=== PATIENT | female | born 1945 | race Caucasian/White ===

== ENCOUNTER 2016-08-28 07:19 | Emergency (ER) | payer MEDICARE ==
[2016-08-28] MEDS ORDERED: Albuterol/Ipratropium NEB.SOL* Albuterol 2.5 MG/Ipratropium 0.5 MG 3 ML INH ONE ×2 (07:49→09:13)
[2016-08-28] MEDS ORDERED: methylPREDNISolone 125 MG* 2 ML VIAL IV ONE (07:49)
[2016-08-28] MEDS ORDERED: NS 0.9% 1000 ML* 1,000 ML IV ONE (07:50)
--- NOTE | 2016-08-28 09:16 | RAD ---
INDICATION: Short of breath. Cough. COMPARISON: January 29, 2016 TECHNIQUE: AP seated and lateral dual-energy views were obtained. FINDINGS: Bones/Soft Tissues: There are no acute bony findings. Cardiomediastinal: The cardiomediastinal silhouette is normal. Lungs: There is hyperinflation with chronic interstitial changes. There is increased airspace disease in the lingular segment which is linear and most consistent with scarring or atelectasis. There is a small left basilar infiltrate which is new. Para Pleura: New, small, left-sided effusion. Other: None IMPRESSION: PROGRESSIVE LINGULAR AND LEFT LOWER LOBE ATELECTASIS/INFILTRATE WITH SMALL LEFT-SIDED EFFUSION. SUGGEST FOLLOW-UP.
[2016-08-28] MEDS ORDERED: Levofloxacin TAB* 250 MG PO ONE (09:45)
[2016-08-28] MEDS ORDERED: Levofloxacin TAB* 500 MG PO ONE (09:46)
[2016-08-28 10:17] VITALS: BP 154/72
--- NOTE | 2016-08-28 13:31 | UC ---
Epi Encarnacion Alfonso, scribed for Juliocesar Kirk MD on 08/28/16 at 0722 . Shortness of Breath HPI - HPI Summary HPI Summary: This patient is a 71 year old female presenting accompanied by family member to [facility] c/o SOB since yesterday. She reports sharp left lung pain at rest. She rates the pain 9/10 in severity. Sx aggravated by nothing and alleviated by ibuprofen and nebulizer treatment (last night). She reports fever, insomnia, non -productive cough, and wheezing. She denies chills, pedal edema, and CP. Pt uses nasal cannula. Pt is a former smoker. Denies PMHx of COPD and CAD. PMHx of COPD. Declining transfer to [facility]. - History of Current Complaint Stated Complaint: SOB Hx Obtained From: Patient, Family/Exercise Rider - family member Onset/Duration: Sudden Onset, Lasting Days - Yesterday, Still Present Timing: Constant Current Severity: Severe Dyspnea At: Rest Alleviating Factors: Bronchodilators, OTC Meds Associated Signs & Symptoms: Positive: Cough (Nonproductive), Wheezing, Fever, Other - Positive insomnia; negative chills, pedal edema, and CP. 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; cervical conization 1975; - Family History Known Family History: Positive: Respiratory Disease - Social History Alcohol Use: Rare Substance Use Type: None Smoking Status (MU): Former Smoker Type: Cigarettes Have You Smoked in the Last Year: No - Immunization History Most Recent Influenza Vaccination: this season Most Recent Tetanus Shot: 5 years Most Recent Pneumonia Vaccination: 5 years Review of Systems Constitutional: Fever, Other - Negative chills Respiratory: Shortness Of Breath, Cough - non-productive, Other - Positive wheezing and left candice pain Cardiovascular: Other - Negative CP Motor: Other - Negative pedal edema Neurological: Other - Positive insomnia, All Other Systems Reviewed And Are Negative: Yes Physical Exam Triage Information Reviewed: Yes Appearance: Other: Vital Signs: Initial Vital Signs Temp 98.2 F 08/28/16 07:23 Pulse 128 08/28/16 07:23 Resp 24 08/28/16 07:23 BP 142/90 08/28/16 07:23 Pulse Ox 94 08/28/16 07:23 Vital Signs Reviewed: Yes - Additional Comments The patient is well-nourished in moderate respiratory distress and in no acute pain. The skin is warm and dry and skin color reflects adequate perfusion. No cyanosis. HEENT: The head is normocephalic and atraumatic. The pupils are equal and reactive. The conjunctivae are clear and without drainage. Nares are patent and without drainage. Mouth reveals mildly dry mucous membranes and the throat is without erythema and exudate. The external ears are intact. The ear canals are patent and without drainage. The tympanic membranes are intact. Neck is supple with full range of motion and non-tender. There are no carotid bruits. There is neck vein distension. Respiratory: Chest is non-tender. Lungs are wheezing diffusely with rhonchi in left base. Breath sounds are slightly diminished. Intercostal retractions. Supraclavicular retractions Cardiovascular: Heart is regular rate and rhythm. There is no murmur or rub auscultated. There is no peripheral edema and pulses are symmetrical and equal. Abdomen: The abdomen is soft and non-tender. There are normal bowel sounds heard in all four quadrants and there is no organomegaly palpated. Musculoskeletal: There is no back pain noted. Extremities are non-tender with full range of motion. There is 3 second capillary refill. There is no peripheral edema or calf tenderness elicited. Diagnostics - Radiology CXR Radiology Interpretation Completed By: Radiologist - PROGRESSIVE LINGULAR AND LEFT LOWER LOBE ATELECTASIS/INFILTRATE WITH SMALL LEFT-SIDED EFFUSION. SUGGEST FOLLOW-UP. - EKG Cardiac Rate: Tachycardia - BPM 121 Cardiac Rhythm: Sinus: Normal Ectopy: None ST Segment: Normal Re-Evaluation - Re-Evaluation First Eval Re-Evaluation Time: 08:28 Comment: Pt reports sx improved. Still diminished breath sounds, and wheezing. Appears more awake. Second Eval Re-Evaluation Time: 09:50 Comment: Pt continues to refuse to be transfered to the ED AMA. Shortness of Breath Dx - Course Course Of Treatment: A 71-year-old F presents to [facility] with a CC of SOB since yesterday. She reports fever, insomnia, non-productive cough, and wheezing. She denies chills, pedal edema, and CP. A CXR reveals PROGRESSIVE LINGULAR AND LEFT LOWER LOBE ATELECTASIS/INFILTRATE WITH SMALL LEFT-SIDED EFFUSION. An EKG reveals tachycardia. Patient was adviced to accept transfer to [facility]. Pt refused AMA and went home. - Differential Dx/Diagnosis Differential Diagnosis/HQI/PQRI: COPD Exacerbation, Pneumonia Provider Diagnoses: pneumonia left lower lobe, copd, ama Discharge - Discharge Plan Condition: Stable Disposition: AGAINST MEDICAL ADVICE Prescriptions: Levofloxacin TAB* [Levaquin TAB*] 750 mg PO DAILY #7 tab predniSONE TAB* [Deltasone TAB*] 60 mg PO DAILY #15 tab Referrals: Dat Wells MD [Primary Care Provider] - [facility] [place] [facility] REFERRAL [Outside] Additional Instructions: Follow-up with Dr. Kirk tomorrow. Present to the emergency department is shortness of breath returns, SaO2 is below 90, fever, or related symptoms return. The documentation as recorded by the Epi engel Alfonso accurately reflects the service I personally performed and the decisions made by , Juliocesar Kirk MD.
== END 2016-08-28 10:35 | disposition left against medical advice (07) ==
LOC: UCEAST 07:19
DX: J18.9 Pneumonia, unspecified organism (principal); J44.9 Chronic obstructive pulmonary disease, unspecified; Z53.20 Procedure and treatment not carried out because of patient's decision for unspecified reasons
CPT/HCPCS: 71020; 93005; 96361; 96374; 99213; A9270-GY; G0463; J2930

== ENCOUNTER 2018-06-05 05:05 | Emergency (ER) | payer MEDICARE ==
[2018-06-05] MEDS ORDERED: Lidocaine 2% JELLY* 6 ML JELLY TOPICAL ONE ×2 (05:33→05:37)
[2018-06-05] MEDS ORDERED: Lidocaine 2% JELLY* 10 ML JELLY TOPICAL ONE (05:37)
[2018-06-05] MEDS ORDERED: oxyCODONE/Acetamin 5/325 MG* TAB PO ONE (05:42)
[2018-06-05] MEDS ORDERED: Cephalexin CAP* 500 MG PO ONE (05:50)
--- NOTE | 2018-06-05 05:55 | ED ---
Throat Pain/Nasal Congestion - HPI Summary HPI Summary: The patient is a 73 year old female who is presenting to the [facility] with a chief complaint of epistaxis. The patient is currently taking oxygen at home (2 to 3 L ) and she is actively bleeding from both nostrils. The patient denies taking any blood thinners. The onset of the epistaxis was 0200 today. She denies chest pain, MIRANDA, N/V/D, and lightheadedness. Pertinent PMHx includes COPD and DM. Patient's medication and allergies noted. The symptoms are aggravated by nothing. The symptoms are aggravated by nothing. The pain is rated to be 0/10 in severity. - History of Current Complaint Chief Complaint: EDEpistaxis Time Seen by Provider: 06/05/18 05:42 Hx Obtained From: Patient Onset/Duration: Sudden Onset - Allergies/Home Medications Allergies/Adverse Reactions: Allergies Allergy/AdvReac Type Severity Reaction Status Date / Time clarithromycin Allergy Unknown Nausea And Verified 06/05/18 14:49 Vomiting Penicillins Allergy Unknown Rash And Verified 06/05/18 14:49 Itching Home Medications: Home Medications Albuterol HFA INHALER* [Ventolin HFA Inhaler*] 1 - 2 puff INH Q6H PRN 06/05/18 [ History Confirmed 06/05/18] Atorvastatin* [Lipitor*] 10 mg PO BEDTIME 06/05/18 [History Confirmed 06/05/18] Cholecalciferol (Vitamin D3) [D 1000] 1,000 unit PO DAILY 06/05/18 [History Confirmed 06/05/18] Fluticasone/Vilanterol MDI(NF) [Breo Ellipta MDI 100/25(NF)] 1 inh PO DAILY [History Confirmed 06/05/18] Multivitamins/Minerals TAB* [Theragran/minerals TAB*] 1 tab PO DAILY 06/05/18 [ History Confirmed 06/05/18] Venlafaxine HCl 150 mg PO DAILY 06/05/18 [History Confirmed 06/05/18] PMH/Surg Hx/FS Hx/Imm Hx Endocrine/Hematology History: Denies: Hx Diabetes, Hx Systemic Lupus Erythematosus, Hx Thyroid Disease Cardiovascular History: Reports: Hx Angina, Hx Hypercholesterolemia Denies: Hx Congestive Heart Failure, Hx Coronary Artery Disease, Hx Hypertension, Hx Myocardial Infarction, Hx Valvular Heart Disease Respiratory History: Reports: Hx Chronic Obstructive Pulmonary Disease (COPD) - on OXYGEN, Other Respiratory Problems/Disorders - COPD Denies: Hx Asthma GI History: Denies: Hx Ulcer History: Denies: Hx Dialysis, Hx Renal Disease Musculoskeletal History: Reports: Hx Arthritis Denies: Hx Rheumatoid Arthritis Sensory History: Reports: Hx Contacts or Glasses Opthamlomology History: Reports: Hx Contacts or Glasses Psychiatric History: Reports: Hx Depression - Cancer History Cancer Type, Location and Year: 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 in situ Hx Chemotherapy: No Hx Radiation Therapy: No - Surgical History Surgery Procedure, Year, and Place: fibrous bands removed from RT ureter as a child; 6 weeks ago splenic aneurysm SX; cervical conization 1975; Infectious Disease History: No Infectious Disease History: Denies: Hx Hepatitis, Hx Human Immunodeficiency Virus (HIV), History Other Infectious Disease, Traveled Outside the [place] in Last 30 Days - Family History Known Family History: Positive: Respiratory Disease Negative: Diabetes - Social History Occupation: Retired Alcohol Use: Rare Substance Use Type: Reports: None Hx Tobacco Use: No Smoking Status (MU): Former Smoker Type: Cigarettes Have You Smoked in the Last Year: No Review of Systems Constitutional: Negative Eyes: Negative Positive: Epistaxis - Active Bleeding Negative: Chest Pain Respiratory: Negative Negative: Vomiting, Diarrhea, Nausea Genitourinary: Negative Musculoskeletal: Negative Skin: Negative Neurological: Other - Negative Lightheadedness Negative: Headache Psychological: Normal All Other Systems Reviewed And Are Negative: Yes Physical Exam - Summary Physical Exam Summary: VITAL SIGNS: Reviewed. GENERAL: Patient is a well-developed and nourished (FEMALE) who is lying comfortable in the stretcher. Patient is not in any acute respiratory distress. HEAD AND FACE: Active bleeding through both nostrils; EYES: PERRLA, EOMI x 2, No injected conjunctiva, no nystagmus. EARS: Hearing grossly intact. Ear canals and tympanic membranes are within normal limits. MOUTH: Oropharynx within normal limits. NECK: Trachea is midline, no adenopathy, no JVD, no carotid bruit, no c-spine tenderness, neck with full ROM. Mild blood in oral pharynx CHEST: Symmetric, no tenderness at palpation LUNGS: Decreased breath sounds bilaterally but lungs are clear CVS: Regular rate and rhythm, S1 and S2 present, no murmurs or gallops appreciated. ABDOMEN: Soft, non-tender. No signs of distention. No rebound no guarding, and no masses palpated. Bowel sounds are normal. EXTREMITIES: FROM in all major joints, no edema, no cyanosis or clubbing. NEURO: Alert and oriented x 3. No acute neurological deficits. Speech is normal and follows commands. SKIN: Dry and warm Triage Information Reviewed: Yes Vital Signs On Initial Exam: Initial Vitals Temp Pulse Resp BP Pulse Ox 96.4 F 106 30 179/97 95 06/05/18 05:13 06/05/18 05:13 06/05/18 05:13 06/05/18 05:13 06/05/18 05:13 Vital Signs Reviewed: Yes Procedures - Procedure Summary Procedure Summary: Epistaxis Active bleeding from both sides. 2 Rhino rockets inserted (one into each nostril) Lidocaine viscous 2% local anesthesia used 4.5 cm rhino rockets Good hemostasis Diagnostics - Vital Signs Vital Signs Temp Pulse Resp BP Pulse Ox 06/05/18 05:13 96.4 F 106 30 179/97 95 - Laboratory Lab Statement: Any lab studies that have been ordered have been reviewed, and results considered in the medical decision making process. EENT Course/Dx - Course Course Of Treatment: The patient is a 73 year old female who is presenting to the [facility] with a chief complaint of a epistaxis. Onset was at 0200 today and the patient is still currently actively bleeding. Two Rhino rockets were inserted as described in the procedure note. Pertinent medical hx includes COPD. Patient takes 2 to 3 L of O2 at home. She is currently feeling better. We recommendated that she follow up with an ENT specialist at [facility] (Dr. Howell ) on Thursday. She is agreeable to this plan. The patient will be discharged home with a dx of epistaxis. O2 stat 97% in [facility]. The patient tolerated the Rhino rockets well. The patient will be discharged home with a dx of Epistaxis. - Diagnoses Provider Diagnoses: Epistaxis Discharge - Sign-Out/Discharge Documenting (check all that apply): Patient Departure - Discharge Home Patient Received Moderate/Deep Sedation with Procedure: No - Discharge Plan Condition: Stable Disposition: HOME Prescriptions: Cephalexin CAP* [Keflex CAP*] 500 mg PO QID #30 cap oxyCODONE/Acetamin 5/325 MG* [Percocet 5/325 TAB*] 1 tab PO Q6H PRN #14 tab MDD 4 PRN Reason: Pain Patient Education Materials: Nosebleed (ED) Referrals: Dat Wells MD [Primary Care Provider] - Samy Howell MD [Medical Doctor] - Additional Instructions: RETURN TO THE EMERGENCY DEPARTMENT FOR CHANGING OR WORSENING SYMPTOMS. FOLLOW UP WITH YOUR PRIMARY CARE PROVIDER WITHIN TWO OR THREE DAYS Follow up with ENT on Thursday (Dr. Howell). - Billing Disposition and Condition Condition: STABLE Disposition: Home - Attestation Statements Document Initiated by Carolinaibmarika: Yes Documenting Scribe: Devaughn Sultana Provider For Whom Keyur is Documenting (Include Credential): Dr. Aide Hampton Scribe Attestation: Devaughn Encarnacion scribed for Dr. Aide Hampton on 06/06/18 at 2018. Scribe Documentation Reviewed: Yes Provider Attestation: The documentation as recorded by the Devaughn engel accurately reflects the service I personally performed and the decisions made by Dr. Js marte Status of Scribe Document: Viewed
[2018-06-05 07:20] VITALS: BP 128/74
== END 2018-06-05 07:20 | disposition home or self-care (01) ==
LOC: ED 05:05
DX: R04.0 Epistaxis (principal); E11.9 Type 2 diabetes mellitus without complications; E78.00 Pure hypercholesterolemia, unspecified; J44.9 Chronic obstructive pulmonary disease, unspecified; Z88.0 Allergy status to penicillin; M19.90 Unspecified osteoarthritis, unspecified site; F32.9 Major depressive disorder, single episode, unspecified; Z88.8 Allergy status to other drugs, medicaments and biological substances; Z79.51 Long term (current) use of inhaled steroids; Z99.81 Dependence on supplemental oxygen; Z85.41 Personal history of malignant neoplasm of cervix uteri; Z87.891 Personal history of nicotine dependence
CPT/HCPCS: 30901; 99283; A9270-GY

== ENCOUNTER 2018-06-05 14:27 | Emergency (ER) | payer MEDICARE ==
--- NOTE | 2018-06-05 14:36 | ED ---
Throat Pain/Nasal Congestion - HPI Summary HPI Summary: A 73 y/o F brought in by ambulance presents to the ED with epistaxis onset approx 1300. Pt is not actively bleeding at bedside. She was seen in [facility] on this date at 0545 for epistaxis and was seen by Dr Hampton, who placed a rhino rocket in each nare. This afternoon, while she was home, the rhino rocket in the R nare fell out. She is not experiencing blood drainage in her throat. Associated sx: MIRANDA. She has not picked up her prescriptions yet today. Pt wears home oxygen 15/09. She is not on blood thinners. - History of Current Complaint Hx Obtained From: Patient Onset/Duration: Sudden Onset, Lasting Hours, Still Present - Allergies/Home Medications Allergies/Adverse Reactions: Allergies Allergy/AdvReac Type Severity Reaction Status Date / Time clarithromycin Allergy Unknown Nausea And Verified 06/05/18 14:49 Vomiting Penicillins Allergy Unknown Rash And Verified 06/05/18 14:49 Itching PMH/Surg Hx/FS Hx/Imm Hx Previously Healthy: No Endocrine/Hematology History: Denies: Hx Diabetes, Hx Systemic Lupus Erythematosus, Hx Thyroid Disease Cardiovascular History: Reports: Hx Angina, Hx Hypercholesterolemia Denies: Hx Congestive Heart Failure, Hx Coronary Artery Disease, Hx Hypertension, Hx Myocardial Infarction, Hx Valvular Heart Disease Respiratory History: Reports: Hx Chronic Obstructive Pulmonary Disease (COPD) - on OXYGEN, Other Respiratory Problems/Disorders - COPD Denies: Hx Asthma GI History: Denies: Hx Ulcer History: Denies: Hx Dialysis, Hx Renal Disease Musculoskeletal History: Reports: Hx Arthritis Denies: Hx Rheumatoid Arthritis Sensory History: Reports: Hx Contacts or Glasses Opthamlomology History: Reports: Hx Contacts or Glasses Psychiatric History: Reports: Hx Depression - Cancer History Cancer Type, 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 Hx Chemotherapy: No Hx Radiation Therapy: No - Surgical History Surgery Procedure, Year, and Place: fibrous bands removed from RT ureter as a child; 6 weeks ago splenic aneurysm SX; cervical conization 1975; Infectious Disease History: Denies: Hx Hepatitis, Hx Human Immunodeficiency Virus (HIV), History Other Infectious Disease, Traveled Outside the [place] in Last 30 Days - Family History Known Family History: Positive: Respiratory Disease Negative: Diabetes - Social History Occupation: Retired Lives: Alone Alcohol Use: Rare Hx Substance Use: No Substance Use Type: Reports: None Hx Tobacco Use: Yes Smoking Status (MU): Former Smoker Type: Cigarettes Have You Smoked in the Last Year: No Review of Systems Positive: Epistaxis Positive: Headache All Other Systems Reviewed And Are Negative: Yes Physical Exam - Summary Physical Exam Summary: GENERAL: Patient is a well-developed and nourished FEMALE who is lying comfortable in the stretcher. Patient is not in any acute respiratory distress. HEAD AND FACE: Normocephalic EYES: PERRLA, EOMI x 2. EARS: Hearing grossly intact. NOSE: L nostril is packed with rhino rocket. R nostril is not actively bleeding. MOUTH: There is some post nasal bleeding and clot. NECK: Supple, trachea is midline, no adenopathy, no JVD, no carotid bruit. CHEST: Symmetric, no tenderness at palpation LUNGS: Clear to auscultation bilaterally. No wheezing or crackles. CVS: Regular rate and rhythm, S1 and S2 present, no murmurs or gallops appreciated. ABDOMEN: Soft, non-tender. Bowel sounds are normal. No abdominal abnormal pulsations. EXTREMITIES: Full ROM in all major joints, no edema, no cyanosis or clubbing. NEURO: Alert and oriented x 3. No acute neurological deficits. Speech is normal and follows commands. SKIN: Dry and warm Triage Information Reviewed: Yes Vital Signs Reviewed: Yes Re-Evaluation - Re-Evaluation 1 Re-Evaluation Time: 15:40 Change: Worse - mildly Comment: R nare is mildly oozing. Pt is requesting to re-pack nostril. 2 Re-Evaluation Time: 16:00 Change: Unchanged Comment: Placing rhino rocket. EENT Course/Dx - Course Course Of Treatment: Pt is a 73 y/o F who was seen previously on this date for epistaxis. Rhino rockets were placed in each nare at that time, The rhino rocket in the R nare fell out at approx 1300. Pt is not actively bleeding at bedside. Associated sx: MIRANDA. R nare packed with rhino rocket. Reviewed patient' s report from visit this AM, pt received Keflex and Percocet, will not prescribe new medications. I discussed results with patient and she reports feeling better. She is hemodynamically stable and safe for discharge. Strict return precautions given and she will otherwise follow up with her PCP. - Diagnoses Provider Diagnoses: Nosebleed Discharge - Sign-Out/Discharge Documenting (check all that apply): Patient Departure - DC Patient Received Moderate/Deep Sedation with Procedure: No - Discharge Plan Condition: Stable Disposition: HOME Patient Education Materials: Anayeli (ED) Referrals: Dat Wells MD [Primary Care Provider] - 2 Days () Additional Instructions: Pick-up your prescriptions at the pharmacy from your prior visit today. Follow up with your primary care physician in 1-3 days. RETURN TO THE EMERGENCY DEPARTMENT FOR CHANGING OR WORSENING SYMPTOMS. - Billing Disposition and Condition Condition: STABLE Disposition: Home - Attestation Statements Document Initiated by Keyur: Yes Documenting Scribe: Karine Vicente Provider For Whom Keyur is Documenting (Include Credential): Dr. Kallie Drapre MD Scribe Attestation: Karine Encarnacion scribed for Dr. Kallie Draper MD on 06/06/18 at 1447. Scribe Documentation Reviewed: Yes Provider Attestation: The documentation as recorded by the Karine engel accurately reflects the service I personally performed and the decisions made by me, Dr. Kallie Draper MD Status of Scribe Document: Viewed
[2018-06-05] MEDS ORDERED: oxyCODONE/Acetamin 5/325 MG* TAB PO ONE (14:48)
[2018-06-05] MEDS ORDERED: Cephalexin CAP* 500 MG PO ONE (16:11)
[2018-06-05 16:34] VITALS: BP 175/75
== END 2018-06-05 16:32 | disposition home or self-care (01) ==
LOC: ED 14:27
DX: R04.0 Epistaxis (principal); Z88.0 Allergy status to penicillin; Z88.3 Allergy status to other anti-infective agents; E78.00 Pure hypercholesterolemia, unspecified; J44.9 Chronic obstructive pulmonary disease, unspecified; Z99.81 Dependence on supplemental oxygen; M19.90 Unspecified osteoarthritis, unspecified site; Z85.41 Personal history of malignant neoplasm of cervix uteri; Z87.891 Personal history of nicotine dependence
CPT/HCPCS: 99283; A9270-GY

== ENCOUNTER 2018-06-09 21:28 | Inpatient (IN) | payer MEDICARE ==
--- OUTSIDE RECORDS SUMMARY | 2018-06-09 21:35 | XMS REPORT | Continuity of Care Document ---
:1945 External Reference #:[id number] Author Name Siddhartha Haynes M.D. Address [address] [place] [address] Care Team Providers Name Role Phone Siddhartha Haynes M.D. 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 [address] AntonioLIOR zavala [id number] Advance Directives Description No Information Available Problems Description No Information Family History Description No Information Available Social History Type Date Description Comments Sex Unknown Occupation Retired Tobacco Use Start: Unknown End: Unknown Former Cigarette Smoker Tobacco Use Start: Unknown Never Smoked Cigars Tobacco Use Start: Unknown Never Smoked A Pipe Smokeless Tobacco Never Used Smokeless Tobacco ETOH Use Currently rarely consumes alcohol Tobacco Use Start: Unknown End: Unknown Patient is a former smoker Smoking Status Reviewed: 06/07/18 Patient is a former smoker Allergies, Adverse Reactions, Alerts Active Allergies Reaction Severity Comments Date Penicillin 06/07/2018 Medications Active Medications SIG Qnty Indications Ordering Provider Date Cephalexin 1 cap 4 times Unknown 500mg Capsules daily Oxycodone-Acetaminophe prn-Take One Unknown n Tablet By Mouth 5-325mg Tablets Every 6 Hours as Needed For Pain Maximum Daily Dose 4 Breo Ellipta Inhale One puff Unknown By Mouth Every 100-25mcg/Inh Aerosol Day Venlafaxine HCL ER 1 tab Gonzalez Connor 150mg M.D. Caps ER 24HR Atorvastatin Calcium Take One Tablet Unknown 10mg By Mouth In The Tablets Evening Vitamin D3 1 daily Unknown Centrum Silver 1 tab daily Unknown 50+Women 50+Women Tablets Ibandronate Sodium prn Gonzalez Wells 150mg M.D. Tablets Albuterol Sulfate HFA prn Unknown 108(90Base) mcg/Act Aerosol Immunizations Description No Information Available Vital Signs Date Vital Result Comment 06/07/2018 10:15am Weight 120.00 lb Weight 54.432 kg Height 65.5 inches 5'5.50" Height in cm's 166.4 cm BMI (Body Mass Index) 19.7 kg/m2 Results Description No Information Available Procedures Description No Information Available Encounters Type Date Location Provider Dx Diagnosis Office Visit 06/07/2018 [place] 02/23/07 Siddhartha Blanchard R04.0 Epistaxis 10:15a Shwetha Haynes. J34.89 Other specified disorders of nose and nasal sinuses Z99.81 Dependence on supplemental oxygen Plan of Treatment 06/07/2018 - Siddhartha Haynes M.D.R04.0 EpistaxisComments:the patient had bilateral packs placed in the ER this weekend. The right one had come out but the left balloon was in place. This was removed. I think cauterized along the floor of the left nostril where she was bleeding. She has a large anterior septal perforation. She did not know this was there.She denies any trauma or cocaine use. This probably formed from the O2NC that she uses. I have recommended saline gel 4 times a day. She uses the humidification with her O2. She could use the face mask for a while. I do not think she is a candidate for repair of the perforation.J34.89 Other specified disorders of nose and nasal [id number] Dependence on supplemental oxygen
[2018-06-09] MEDS ORDERED: methylPREDNISolone 125 MG* 2 ML VIAL IV ONE (21:58)
[2018-06-09] MEDS ORDERED: Albuterol/Ipratropium NEB.SOL* Albuterol 2.5 MG/Ipratropium 0.5 MG 3 ML INH ONE (21:58)
[2018-06-09] MEDS ORDERED: Magnesium Sulfate 2 GM IV* 2 GM/50 ML BAG IVPB ONE (21:59)
[2018-06-09] MEDS ORDERED: Saline NASAL SPRAY 0.65%* BTL BOTH NARES ONE (22:00)
[2018-06-09] MEDS ORDERED: NS 0.9% 1000 ML** 1,000 ML IV ONE (22:00)
--- NOTE | 2018-06-09 22:10 | ED ---
Throat Pain/Nasal Congestion - HPI Summary HPI Summary: The patient is a 73 year old female who is presenting to the [facility] with a chief complaint of SOB. She arrived to the [facility] via ambulance. The patient had her nasal balloons removed on Thursday (06/07/18) by an ENT and there is reports of nasal cauterization from Epistaxis that was prior to the current symptoms. She receives O2 at home (3 Lpm of O2). No reports of pain are noted. Patient also denies fevers, but states that she is feeling warm. She currently reports of skin diaphoresis. A nebulizer is at home, but the patient states that she does not use it. Pertinent PMHx includes DM. The symptoms are aggravated by nothing. The symptoms are alleviated by nothing. The pain is rated to be a 0/10 in severity. - History of Current Complaint Chief Complaint: EDShortnessOfBreath Time Seen by Provider: 06/09/18 21:43 Hx Obtained From: Patient Onset/Duration: Sudden Onset - Allergies/Home Medications Allergies/Adverse Reactions: Allergies Allergy/AdvReac Type Severity Reaction Status Date / Time clarithromycin Allergy Unknown Nausea And Verified 06/05/18 14:49 Vomiting Penicillins Allergy Unknown Rash And Verified 06/05/18 14:49 Itching PMH/Surg Hx/FS Hx/Imm Hx Endocrine/Hematology History: Denies: Hx Diabetes, Hx Systemic Lupus Erythematosus, Hx Thyroid Disease Cardiovascular History: Reports: Hx Angina, Hx Hypercholesterolemia Denies: Hx Congestive Heart Failure, Hx Coronary Artery Disease, Hx Hypertension, Hx Myocardial Infarction, Hx Valvular Heart Disease Respiratory History: Reports: Hx Chronic Obstructive Pulmonary Disease (COPD) - on OXYGEN, Other Respiratory Problems/Disorders - COPD Denies: Hx Asthma GI History: Denies: Hx Ulcer History: Denies: Hx Dialysis, Hx Renal Disease Musculoskeletal History: Reports: Hx Arthritis Denies: Hx Rheumatoid Arthritis Sensory History: Reports: Hx Contacts or Glasses Opthamlomology History: Reports: Hx Contacts or Glasses Psychiatric History: Reports: Hx Depression - Cancer History Cancer Type, 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 Hx Chemotherapy: No Hx Radiation Therapy: No - Surgical History Surgery Procedure, Year, and Place: fibrous bands removed from RT ureter as a child; 6 weeks ago splenic aneurysm SX; cervical conization 1975; Infectious Disease History: No Infectious Disease History: Denies: Hx Hepatitis, Hx Human Immunodeficiency Virus (HIV), History Other Infectious Disease, Traveled Outside the [place] in Last 30 Days - Family History Known Family History: Positive: Respiratory Disease Negative: Diabetes - Social History Occupation: Retired Alcohol Use: Rare Hx Substance Use: No Substance Use Type: Reports: None Hx Tobacco Use: Yes Smoking Status (MU): Former Smoker Type: Cigarettes Have You Smoked in the Last Year: No Review of Systems Positive: Skin Diaphoresis. Negative: Fever Eyes: Negative ENT: Other - Nasal cauterization Cardiovascular: Negative Positive: Shortness Of Breath Gastrointestinal: Negative Genitourinary: Negative Musculoskeletal: Negative Skin: Negative Neurological: Negative Psychological: Normal All Other Systems Reviewed And Are Negative: Yes Physical Exam - Summary Physical Exam Summary: VITAL SIGNS: Reviewed. GENERAL: Patient is a well-developed and nourished (FEMALE) who is lying comfortable in the stretcher. Patient is not in any acute respiratory distress. HEAD AND FACE: No signs of trauma. No ecchymosis, hematomas or skull depressions. No sinus tenderness. EYES: PERRLA, EOMI x 2, No injected conjunctiva, no nystagmus. EARS: Hearing grossly intact. Ear canals and tympanic membranes are within normal limits. MOUTH: Oropharynx within normal limits. NECK: Supple, trachea is midline, no adenopathy, no JVD, no carotid bruit, no c- spine tenderness, neck with full ROM. CHEST: Symmetric, no tenderness at palpation LUNGS: Decreased breath sounds Bilateral; Bilaterally excretory wheezes; CVS: Tachycardia ABDOMEN: Soft, non-tender. No signs of distention. No rebound no guarding, and no masses palpated. Bowel sounds are normal. EXTREMITIES: FROM in all major joints, no edema, no cyanosis or clubbing. NEURO: Alert and oriented x 3. No acute neurological deficits. Speech is normal and follows commands. SKIN: Dry and warm Triage Information Reviewed: Yes Vital Signs On Initial Exam: Initial Vitals Temp Pulse Resp BP Pulse Ox 97.8 F 101 22 182/112 98 06/09/18 21:28 06/09/18 21:28 06/09/18 21:28 06/09/18 21:28 06/09/18 21:28 Vital Signs Reviewed: Yes Diagnostics - Vital Signs Vital Signs Temp Pulse Resp BP Pulse Ox 06/09/18 21:28 97.8 F 101 22 182/112 98 - Laboratory Result Diagrams: 06/09/18 23:04 06/09/18 23:04 Lab Statement: Any lab studies that have been ordered have been reviewed, and results considered in the medical decision making process. - Radiology Chest X-Ray Radiology Interpretation Completed By: ED Physician Summary of Radiographic Findings: The CXR as per ED Physician reveals hyperinflation, COPD and no infiltrate. - EKG 2206 Summary of EKG Findings: An EKG at 2206 reveals 99 bpm at sinus rhythm. Normal [place]. Normal Intervals. No ischemic changes. EENT Course/Dx - Course Course Of Treatment: The patient is a 73 year old female who is presenting to the [facility] with a chief complaint of SOB. The patient has had her nasal balloons removed by her ENT two days ago. She has had a CXR and EKG taken in the [facility]. We reviewed the CXR in the [facility] and the patient received breathing treatments while in the [facility]. The physical exam showed wheezing and decreased breath sounds. We discussed the case with the Dr. Mancera (at 2330) upon reviewing lab results, and he accepts patient care. The patient dx will be COPD exacerbation and the patient will be admitted to the [facility]. - Differential Diagnoses Differential Diagnoses: Gingivitis - Diagnoses Provider Diagnoses: COPD exacerbation - Provider Notifications Discussed Care Of Patient With: Jey Mancera - Discussed Patient care Time Discussed With Above Provider: 23:30 Discharge - Sign-Out/Discharge Documenting (check all that apply): Patient Departure - Discharge Plan Condition: Stable Disposition: ADMITTED TO [facility] Referrals: No Primary Care Phys,NOPCP [Primary Care Provider] - - Attestation Statements Document Initiated by Scribe: Yes Documenting Scribe: Devaughn Sultana Provider For Whom Scribe is Documenting (Include Credential): Dr. Js Figueroaibmarika Attestation: Devaughn Encarnacion scribed for Dr. Aide Hampton on 06/10/18 at 0005. Status of Scribe Document: Ready
[2018-06-09] MEDS ORDERED: Albuterol 2.5 MG/3 ML NEB.SOL* (0.083%) INH ONE (22:26)
[2018-06-09] MEDS: Albuterol 2.5 MG/3 ML NEB.SOL* (0.083%) INH SCH ×2 (22:29→22:39)
[2018-06-09 23:30] LABS: ABS Basophils 0.1 10^3/ul (0-0.2); ABS Eosinophils 0.1 10^3/ul (0-0.6); ABS Lymphocytes 2.3 10^3/ul (1.0-4.8); ABS Monocytes 0.8 10^3/ul (0-0.8); ABS Neutrophils 7.1 10^3/ul (1.5-7.7); ABS Nucleated RBC 0 10^3/ul; Eosinophil % 1.1 %; Hematocrit 40 % (33-41); Lymphocyte % 21.9 %; Mean Corpuscular HGB Conc 33 g/dL (31-36); Mean Corpuscular Hemoglobin 29 pg (27-31); Mean Corpuscular Volume 88 fL (80-97); Mean Platelet Volume 9.8 fL (7.4-10.4); Nucleated Red Blood Cells % 0; Platelet Count 291 10^3/uL (150-450); Red Cell Distribution Width 15 % (10.5-15); White Blood Count 10.3 10^3/uL (3.5-10.8)
[2018-06-09 23:32] LABS: Activated Partial Thrombo Time 38.6 seconds (26.0-36.3); INR 0.96 (0.77-1.02)
[2018-06-09 23:39] LABS: ALT 29 U/L (7-52); Albumin 3.7 g/dL (3.2-5.2); Albumin/Globulin Ratio 1.1 (1-3); Alkaline Phosphatase 76 U/L (34-104); BUN/Creatinine Ratio 37.7 (8-20); Blood Urea Nitrogen 20 mg/dL (6-24); C Reactive Protein 7.46 mg/L (<8.01); CO2 Carbon Dioxide 29 mmol/L (22-32); Chloride 100 mmol/L (101-111); EGFR African American 136.8 (>60); EGFR Non-African American 113.1 (>60); Globulin 3.3 g/dL (2-4); Glucose 166 mg/dL (70-100); Sodium 135 mmol/L (135-145)
[2018-06-09 23:43] LABS: Anion Gap 6 mmol/L (2-11)
[2018-06-10 00:33] LABS: Potassium Redraw 3.6 mmol/L (3.5-5.0)
--- NOTE | 2018-06-10 05:25 | HP ---
HISTORY AND PHYSICAL: DATE OF SERVICE: 06/10/18 CHIEF COMPLAINT: Shortness of breath. HISTORY OF PRESENT ILLNESS: The patient is a 73-year-old lady with history of COPD, depression and newly diagnosed diabetes mellitus controlled with lifestyle modification and diet therapy who was in her usual state of health until a few hours prior to admission, where she started having some shortness of breath. The patient presented to [facility] a few days prior for epistaxis where nasal balloons had been placed and was then subsequently removed upon follow up by an ENT 06/07/18. She reports nasal cauterization and she received O2 at home at 3 L. She mentions that she woke up this morning short of breath and found herself with increasing shortness of breath and dyspnea on exertion. She denies any fevers. Persistence of her signs and symptoms, led her to call the EMS, who brought her to the ED at which point, she was found to have an unremarkable chest x-ray with normal white count and was short of breath likely due to COPD exacerbation. PAST MEDICAL AND SURGICAL HISTORY: COPD, depression, hyperlipidemia, diabetes mellitus, on diet therapy, status post surgical conization of her cervix due to carcinoma in situ and epistaxis status post recent nasal cauterization. HOME MEDICATIONS: 1. Atrovent. 2. Ventolin. 3. Dulera. 4. Vitamin D. 5. Lipitor. 6. Boniva. 7. Multivitamins. ALLERGIES: PENICILLIN and CLARITHROMYCIN. FAMILY HISTORY: The patient's father had a heart attack when he was 58. The patient denies any family history of diabetes or cancer. SOCIAL HISTORY: The patient mentions that she only had smoked 1-1/2 pack per year for about 40 years instead of the 1 pack per year for 40 years that was previously documented. She quit back in 2009. She has an occasional glass of wine. 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 She is with 2 daughters that are surrogate decision makers in the event that she is unable to make decision. REVIEW OF SYSTEMS: On review of systems, shortness of breath has improved. Dyspnea on exertion. Denies any headaches, dizziness, fevers, chills, nausea, vomiting, chest pain, abdominal pain, diarrhea, constipation, pain and/or increased frequency on urination, myalgias and arthralgias, throat pain, or new skin lesions. The rest of the 14-point of review of systems are otherwise unremarkable. PHYSICAL EXAMINATION GENERAL APPEARANCE: The patient is awake on a breathing mask, not in acute distress. HEENT: Normocephalic, atraumatic. PERRLA. Not in acute distress. NECK: Soft, supple with no cervical lymphadenopathy. No JVD. CHEST: The patient has poor air entry. No rales, no rhonchi appreciated. HEART: S1, S2 within normal limits. Regular rate and rhythm. No murmurs, rubs , or gallops. ABDOMEN: Soft, nondistended, nontender. Normoactive bowel sounds x4 quadrants. EXTREMITIES: No cyanosis, clubbing, or edema. PSYCHIATRIC: No active psychosis, depression, suicidal or homicidal ideations. SKIN: Warm to touch. DIAGNOSTIC STUDIES/LAB DATA: Most recent and pertinent laboratories drawn shows CBC with WBC, H and H and platelets that were normal. Sodium and potassium shows 133 and 3.6 respectively. BUN and creatinine as well as LFTs were found to be normal. INR is normal at 0.96. EKG shows normal sinus rhythm 99 beats per minute with no ST segment changes with QTc of 41. Chest x-ray, there is no acute disease. ASSESSMENT AND PLAN: The patient is 73-year-old lady with a history of depression, hyperlipidemia, newly diagnosed diabetes and chronic obstructive pulmonary disease, who is being admitted for chronic obstructive pulmonary disease exacerbation. 1. Chronic obstructive pulmonary disease. We will place the patient on IV Solu - Medrol as ordered. DuoNeb and p.r.n. nebulization and Advair and we will continue watchful waiting. 2. Diabetes mellitus, diet controlled. We will place patient on consistent carbohydrate diet, but we will place patient on insulin per protocol per her BMI. We will continue to monitor finger-sticks q.a.c. and h.s. We will check HbA1c. 3. Hyperlipidemia. Continue Lipitor. 4. DVT prophylaxis. We will place the patient on Lovenox subcu daily. 5. Disposition: As above. [id number]/[facility] #: [id number] MTDD
[2018-06-10] MEDS ORDERED: Dextrose 50% Syringe 50 ML* 25 GM/50 ML SYRINGE IV PUSH PRN (06:14)
[2018-06-10] MEDS ORDERED: Insulin LISPRO* 1 UNITS UNIT SUBCUT ONE (06:23)
[2018-06-10] MEDS: Insulin LISPRO* 1 UNITS UNIT SUBCUT SCH ×4 (06:27→20:54)
[2018-06-10 07:01] LABS: ABS Basophils 0 10^3/ul (0-0.2); ABS Eosinophils 0 10^3/ul (0-0.6); ABS Lymphocytes 0.5 10^3/ul (1.0-4.8); ABS Monocytes 0.1 10^3/ul (0-0.8); ABS Neutrophils 7.4 10^3/ul (1.5-7.7); ABS Nucleated RBC 0 10^3/ul; Eosinophil % 0.1 %; Hematocrit 37 % (33-41); Hemoglobin 12.2 g/dL (12.0-16.0); Mean Corpuscular HGB Conc 33 g/dL (31-36); Mean Corpuscular Hemoglobin 29 pg (27-31); Mean Corpuscular Volume 87 fL (80-97); Mean Platelet Volume 9.7 fL (7.4-10.4); Nucleated Red Blood Cells % 0; Platelet Count 264 10^3/uL (150-450); Red Blood Count 4.22 10^6 /uL (3.70-4.87); Red Cell Distribution Width 15 % (10.5-15)
[2018-06-10 07:03] LABS: Albumin 3.6 g/dL (3.2-5.2); Albumin/Globulin Ratio 1.2 (1-3); BUN/Creatinine Ratio 32.7 (8-20); EGFR African American 139.9 (>60); EGFR Non-African American 115.6 (>60); Magnesium 2.2 mg/dL (1.9-2.7); Potassium 4.1 mmol/L (3.5-5.0); Total Bilirubin 0.2 mg/dL (0.2-1.0); Total Protein 6.6 g/dL (6.4-8.9)
[2018-06-10 07:16] LABS: TSH (Thyroid Stimulating Horm) 0.66 mcIU/mL (0.34-5.60)
[2018-06-10] MEDS ORDERED: Albuterol 2.5 MG/3 ML NEB.SOL* (0.083%) INH PRN (07:19)
[2018-06-10] MEDS: Mometasone/Formoter 200/5 MDI INH SCH ×3 (07:42→21:11)
[2018-06-10] MEDS: Aspirin 81 mg CHEW TAB* 81 MG TAB.CHEW PO SCH (08:39)
[2018-06-10] MEDS: Enoxaparin(*) 40 MG/0.4 ML SYR SUBCUT SCH (08:39)
[2018-06-10] MEDS: methylPREDNISolone SOD 40 MG* 1 ML VIAL IV SCH ×2 (08:39→16:14)
[2018-06-10] MEDS ORDERED: Albuterol/Ipratropium NEB.SOL* Albuterol 2.5 MG/Ipratropium 0.5 MG 3 ML INH SCH (11:00)
[2018-06-10] MEDS: Venlafaxine EXT RELEASE CAP* 75 MG PO SCH (12:22)
[2018-06-10] MEDS ORDERED: traZODone TAB* 50 MG TAB PO PRN (14:30)
[2018-06-10] MEDS: Albuterol/Ipratropium NEB.SOL* Albuterol 2.5 MG/Ipratropium 0.5 MG 3 ML INH SCH ×3 (15:37→21:09)
--- NOTE | 2018-06-10 19:42 | PN ---
Hospitalist Progress Note Brief update note - see admission note from earlier this morning for full details. Exam: SaO2 91% on 4L rrr no mgr poor air movement b/l, no wheeze soft nontender no LE edema A1c resulted 6.2%. She has not had a recurrence of nose bleed this admission. Will switch to humidified air through DC. Patient reports hypoxia with ambulation. Will plan to finish day with IV steroids and start prednisone in the morning. Patient should be walked with SaO2 monitor. Will consider discharging on a LAMA. Currently on ICS/LABA at home.
[2018-06-10] MEDS ORDERED: Atorvastatin* 10 MG TAB PO SCH (21:00)
[2018-06-10] MEDS: Saline NASAL SPRAY 0.65%* BTL BOTH NARES PRN (22:46)
[2018-06-11] MEDS: Albuterol/Ipratropium NEB.SOL* Albuterol 2.5 MG/Ipratropium 0.5 MG 3 ML INH SCH ×3 (01:35→13:06)
[2018-06-11] MEDS: Insulin LISPRO* 1 UNITS UNIT SUBCUT SCH ×2 (07:36→12:18)
[2018-06-11] MEDS: Saline NASAL SPRAY 0.65%* BTL BOTH NARES PRN (07:38)
[2018-06-11] MEDS: Aspirin 81 mg CHEW TAB* 81 MG TAB.CHEW PO SCH (07:39)
[2018-06-11] MEDS: Enoxaparin(*) 40 MG/0.4 ML SYR SUBCUT SCH (07:39)
[2018-06-11] MEDS: Venlafaxine EXT RELEASE CAP* 75 MG PO SCH (07:39)
[2018-06-11] MEDS: Mometasone/Formoter 200/5 MDI INH SCH (08:06)
[2018-06-11] MEDS ORDERED: predniSONE TAB* 20 MG PO SCH (09:00)
[2018-06-11 11:27] VITALS: BP 129/62
--- NOTE | 2018-06-11 12:57 | DS ---
DISCHARGE SUMMARY: DATE OF ADMISSION: 06/10/18 DATE OF DISCHARGE: 06/11/18 PRIMARY CARE PHYSICIAN: None. PRIMARY DIAGNOSIS: Chronic obstructive pulmonary disease exacerbation. SECONDARY DIAGNOSES: 1. Diabetes. 2. Depression. 4. Osteoporosis. DISPOSITION: To home. CONDITION: Improved. DISCHARGE MEDICATIONS: 1. Tiotropium 1 inhalation daily. 2. Prednisone 40 mg daily for 3 more days. 3. Breo Ellipta 1 inhalation daily. 4. Ipratropium and albuterol nebs as needed. 5. Albuterol inhaler 1 to 2 puffs inhaled q.6 hours p.r.n. shortness of breath , wheeze. 6. Atorvastatin 10 mg nightly. 7. Venlafaxine 150 mg daily. 8. Ibandronate 150 mg monthly. 9. Vitamin D 1000 units daily. HISTORY OF PRESENT ILLNESS: A 73-year-old woman with a history of COPD, on home oxygen 3 L, depression, newly diagnosed diet-controlled diabetes within her usual state of health until few hours prior to presentation where she started experiencing shortness of breath. Of note, she presented to [facility] a few days prior to this presentation with epistaxis where nasal balloons had been placed and subsequently removed on followup by ENT. One day prior to admission , she reports nasal cauterization and continuation on her home oxygen on 3 L. On day of presentation in the morning, she woke up short of breath and found herself with increasing shortness of breath and also dyspnea on exertion. She denied upper respiratory infection, fever, or chest pain. Given progressive nature of her symptoms, she called EMS and was brought to the emergency room. HOSPITAL COURSE: In the emergency room, she was found to have an unremarkable chest x-ray with a normal white count. She was admitted and started on IV steroids. Within 24 hours, she was able to switch to oral steroids and return to her home level of supplemental oxygen. On day of discharge, she was able to walk with the nurse without significant desaturation or tachycardia. She had been switched to oral steroids and felt ready to return home. She reports shortness of breath at her baseline and mild anxiety, but otherwise 10-point of review of systems is negative. PHYSICAL EXAMINATION: The patient is afebrile. Heart rate 80, blood pressure 129/62, respiratory rate 16, oxygen saturation 94% on 3 L. In general, elderly woman, in no acute distress. Alert and interactive, very pleasant. Neck: Supple. No JVD. Lungs: Notable for poor air entry bilaterally, but without wheeze. Heart: Regular rate and rhythm. No murmurs, gallops, or rubs. Abdomen : Soft, nontender, nondistended. Extremities: Warm and well perfused. No edema. DIAGNOSTIC STUDIES AND LAB DATA: Chest x-ray 06/09/18 with biapical emphysematous changes. Hemoglobin A1c 6.2%. DISCHARGE PLAN: The patient is to return home. Her sister will come and pick her up and her daughters will visit her over the next couple of days. She was amenable to [facility] referral. She will continue on her home level of 3 L oxygen to the nasal cannula. She needs to establish care with a new primary care physician and she can follow up with ENT as needed for epistaxis. The only changes to her medications listed above are the addition of long-acting antimuscarinic agent to her home inhaler regimen and the addition of a course of prednisone. She was educated to return to the hospital if she experiences a recurrence in severe persistent shortness of breath or new fever or worsening cough. She is to resume a healthy diet low in sugar and a normal level of activity. TIME SPENT: Approximately 60 minutes spent on discharge of this patient' more than half of which was spent with care, coordination or at the patient's bedside. [id number]/[facility] #: [id number] BLACK
== END 2018-06-11 14:40 | disposition home health service (06) | DRG 192 ==
LOC: ED 21:28 → MED 06-10 05:00
PROVIDERS: ADMIT Student in an Organized Health Care Education/Training Program; ATTEND Internal Medicine
DX: J44.1 Chronic obstructive pulmonary disease with (acute) exacerbation (principal); E11.9 Type 2 diabetes mellitus without complications; E78.00 Pure hypercholesterolemia, unspecified; M19.90 Unspecified osteoarthritis, unspecified site; F32.9 Major depressive disorder, single episode, unspecified; E78.5 Hyperlipidemia, unspecified; M81.0 Age-related osteoporosis without current pathological fracture; Z85.41 Personal history of malignant neoplasm of cervix uteri; Z88.0 Allergy status to penicillin; Z88.1 Allergy status to other antibiotic agents; Z82.5 Family history of asthma and other chronic lower respiratory diseases; Z87.891 Personal history of nicotine dependence; Z82.49 Family history of ischemic heart disease and other diseases of the circulatory system; Z99.81 Dependence on supplemental oxygen
CPT/HCPCS: 36415; 71045; 80053; 80061; 83036; 83735; 84443; 84484; 85025; 85610; 85730; 86140; 87040; 93005; 94640; 96361; 96365; 96375; 99284; A9270-GY; J1650; J2920; J2930; J3475; J7512

== ENCOUNTER 2018-09-11 18:06 | Inpatient (IN) | payer MEDICARE ==
[2018-09-11] MEDS ORDERED: NS 0.9% 1000 ML** 1,000 ML IV ONE (18:16)
[2018-09-11] MEDS ORDERED: Magnesium Sulfate IV* 0.5 GM/ML 2 ML VIAL (1 GM) IVPB ONE (18:18)
[2018-09-11] MEDS ORDERED: Levofloxacin 500 MG IVPREMIX(* 500 MG/100 ML BAG IVPB ONE (18:18)
--- NOTE | 2018-09-11 18:18 | ED ---
Shortness of Breath - HPI Summary HPI Summary: This patient is a 73 year old F BIBA to ED via EMS with a chief complaint of SOB. Patient is on 3L O2 at home and began to feel increased SOB throughout the day. EMS gave albuterol, which helped a little, 10mg dexamethasone, and 6L O2. The patient rates the pain 0/10 in severity. Symptoms aggravated by nothing. Symptoms alleviated by EMS treatment. Patient denies CP. - History of Current Complaint Hx Obtained From: Patient, EMS Onset/Duration: Gradual Onset, Lasting Hours - Since this morning, Still Present , Worse Since Timing: Constant Current Severity: Moderate Dyspnea At: Rest Aggravating Factors: Nothing Alleviating Factors: EMS Tx Associated Signs & Symptoms: Negative - CP - Allergy/Home Medications Allergies/Adverse Reactions: Allergies Allergy/AdvReac Type Severity Reaction Status Date / Time clarithromycin Allergy Unknown Nausea And Verified 06/05/18 14:49 Vomiting Penicillins Allergy Unknown Rash And Verified 06/05/18 14:49 Itching PMH/Surg Hx/FS Hx/Imm Hx Endocrine/Hematology History: Reports: Hx Diabetes Denies: Hx Systemic Lupus Erythematosus, Hx Thyroid Disease Cardiovascular History: Reports: Hx Angina, Hx Hypercholesterolemia Denies: Hx Congestive Heart Failure, Hx Coronary Artery Disease, Hx Hypertension, Hx Myocardial Infarction, Hx Valvular Heart Disease Respiratory History: Reports: Hx Chronic Obstructive Pulmonary Disease (COPD) - HOME O2, Other Respiratory Problems/Disorders - COPD Denies: Hx Asthma GI History: Denies: Hx Ulcer History: Denies: Hx Dialysis, Hx Renal Disease Musculoskeletal History: Reports: Hx Arthritis Denies: Hx Rheumatoid Arthritis Sensory History: Reports: Hx Contacts or Glasses Denies: Hx Hearing Aid Opthamlomology History: Reports: Hx Contacts or Glasses Psychiatric History: Reports: Hx Depression - Cancer History Cancer Type, 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 Hx Chemotherapy: No Hx Radiation Therapy: No - Surgical History Surgery Procedure, Year, and Place: fibrous bands removed from RT ureter as a child; 6 weeks ago splenic aneurysm SX; cervical conization 1975; Infectious Disease History: Denies: Hx Hepatitis, Hx Human Immunodeficiency Virus (HIV), History Other Infectious Disease - Family History Known Family History: Positive: Respiratory Disease Negative: Diabetes - Social History Alcohol Use: Rare Hx Substance Use: No Substance Use Type: Reports: None Hx Tobacco Use: Yes Smoking Status (MU): Former Smoker Type: Cigarettes Have You Smoked in the Last Year: No Review of Systems Negative: Chest Pain Positive: Shortness Of Breath All Other Systems Reviewed And Are Negative: Yes Physical Exam - Summary Physical Exam Summary: GENERAL: Patient is a well-developed and nourished F who is lying comfortable in the stretcher. Patient is in respiratory distress. HEAD AND FACE: Normocephalic EYES: PERRLA, EOMI x 2. EARS: Hearing grossly intact. MOUTH: Oropharynx within normal limits. NECK: Supple, trachea is midline, no adenopathy, no JVD, no carotid bruit. CHEST: Symmetric, no tenderness at palpation LUNGS: Poor air entry bilaterally, increased work of breathing CVS: Regular rate and rhythm, S1 and S2 present, no murmurs or gallops appreciated. ABDOMEN: Soft, non-tender. Bowel sounds are normal. No abnormal abdominal pulsations. EXTREMITIES: Full ROM in all major joints, no edema, no cyanosis or clubbing. NEURO: Alert and oriented x 3. No acute neurological deficits. Speech is normal and follows commands. SKIN: Dry and warm Triage Information Reviewed: Yes Vital Signs On Initial Exam: Initial Vitals Temp Pulse Resp BP Pulse Ox 98.9 F 113 38 197/116 94 09/11/18 18:17 09/11/18 18:17 09/11/18 18:17 09/11/18 18:17 09/11/18 18:17 Vital Signs Reviewed: Yes Diagnostics - Laboratory Result Diagrams: 09/11/18 18:36 09/11/18 18:36 Lab Statement: Any lab studies that have been ordered have been reviewed, and results considered in the medical decision making process. - Radiology CXR Radiology Interpretation Completed By: ED Physician Summary of Radiographic Findings: Hyperinflated lungs, no acute processes, pending official radiology report. - EKG 1822 Cardiac Rate: Tachycardia - 113 BPM EKG Rhythm: Sinus Tachycardia Summary of EKG Findings: Sinus tachycardia at 113 BPM, LPFB. Re-Evaluation - Re-Evaluation First Eval Re-Evaluation Time: 18:46 Change: Improved Comment: Patient is on BIPAP and is feeling better. Course/Dx - Course Course Of Treatment: This patient is a 73 year old F BIBA to ED via EMS with a chief complaint of SOB. In the ED course, patient received fluids, Levaquin, magnesium sulfate, and Duoneb. EKG at 1822 revealed sinus tachycardia at 113 BPM , LPFB. CXR revealed hyperinflated lungs, no acute processes, pending official radiology report. Patient reports feeling better on BIPAP. Case discussed with hospitalist. I discussed results with patient. The patient agrees with this plan. Patient will be admitted to [facility] [place] with dx of COPD exacerbation. - Diagnoses Provider Diagnoses: COPD exacerbation - Physician Notifications Discussed Care of Patient With: Corona Grimes Time Discussed With Above Provider: 19:33 Instructed by Provider To: Admit As Inpatient - Discussed patient case with Dr. Grimes, hospitalist, who accepted the patient for admission to [facility] [place]. - Critical Care Time Critical Care Time: 30-74 min - 30 minutes Discharge - Sign-Out/Discharge Documenting (check all that apply): Patient Departure - Admit Patient Received Moderate/Deep Sedation with Procedure: No - Discharge Plan Condition: Fair Disposition: ADMITTED TO [facility] - Billing Disposition and Condition Condition: FAIR Disposition: Admitted to [facility] - Attestation Statements Document Initiated by Carolinaibe: Yes Documenting Scribe: Vinayak Holbrook Provider For Whom Carrolle is Documenting (Include Credential): Kallie Draper MD Scribe Attestation: I, Vinayak Holbrook, scribed for Kallie Draper MD on 09/12/18 at 1053. Scribe Documentation Reviewed: Yes Provider Attestation: The documentation as recorded by the scribe, Vinayak Holbrook accurately reflects the service I personally performed and the decisions made by me, Kallie Draper MD Status of Scribe Document: Viewed
[2018-09-11] MEDS ORDERED: Albuterol/Ipratropium NEB.SOL* Albuterol 2.5 MG/Ipratropium 0.5 MG 3 ML INH ONE (18:19)
[2018-09-11] MEDS ORDERED: Magnesium Sulfate 2 GM IV* 2 GM/50 ML BAG IVPB ONE ×2 (18:31→18:32)
[2018-09-11 18:43] LABS: ABS Basophils 0.1 10^3/ul (0-0.2); ABS Eosinophils 0.2 10^3/ul (0-0.6); ABS Lymphocytes 1.7 10^3/ul (1.0-4.8); ABS Monocytes 0.6 10^3/ul (0-0.8); ABS Neutrophils 12.3 10^3/ul (1.5-7.7); Eosinophil % 1.3 %; Hematocrit 45 % (35-47); Hemoglobin 14.7 g/dL (12.0-16.0); Lymphocyte % 11.3 %; Mean Corpuscular HGB Conc 33 g/dL (31-36); Mean Corpuscular Hemoglobin 29 pg (27-31); Mean Corpuscular Volume 89 fL (80-97); Mean Platelet Volume 9.4 fL (7.4-10.4); Nucleated Red Blood Cells % 0.1; Platelet Count 304 10^3/uL (150-450); Red Blood Count 5.01 10^6 /uL (3.70-4.87); Red Cell Distribution Width 14 % (10-15); White Blood Count 14.9 10^3/uL (3.5-10.8)
[2018-09-11 18:53] LABS: Activated Partial Thrombo Time 45.3 seconds (26.0-38.0); INR 0.93 (0.82-1.09)
[2018-09-11 19:00] LABS: Albumin 4.2 g/dL (3.2-5.2); Albumin/Globulin Ratio 1.2 (1-3); BUN/Creatinine Ratio 33.9 (8-20); Calcium 10.2 mg/dL (8.6-10.3); EGFR African American 128.4 (>60); EGFR Non-African American 106.1 (>60); Globulin 3.4 g/dL (2-4); Potassium 4.3 mmol/L (3.5-5.0); Total Bilirubin 0.2 mg/dL (0.2-1.0); Total Protein 7.6 g/dL (6.4-8.9)
[2018-09-11 19:02] LABS: Troponin I 0.01 ng/mL (<0.04)
[2018-09-11] MEDS ORDERED: Albuterol HFA INHALER* 8 gm MDI INH PRN (21:03)
[2018-09-11] MEDS ORDERED: Ondansetron INJ* 2 MG/ML VIAL IV PRN (21:12)
[2018-09-11] MEDS ORDERED: Senna TAB 8.6 mg* TAB PO PRN (21:12)
[2018-09-11] MEDS ORDERED: Al Hydrox/Mg Hydrox/Simet LIQ* 30 ML UDC PO PRN (21:12)
[2018-09-11] MEDS ORDERED: Acetaminophen TAB* 325 MG PO PRN (21:12)
[2018-09-11] MEDS ORDERED: Dextrose 50% VIAL 50 ml IV PUSH PRN (21:18)
[2018-09-11] MEDS ORDERED: hydrALAZINE IV* 20 MG/ML VIAL IV SLOW PU PRN (21:36)
[2018-09-11 22:26] LABS: Troponin I 0.09 ng/mL (<0.04)
[2018-09-11] MEDS ORDERED: Spiriva HANDIHALER DEVICE (NF) 1 EACH DEVICE INH SCH (22:30)
[2018-09-11] MEDS ORDERED: Aspirin TAB* 325 MG PO ONE (22:43)
[2018-09-11] MEDS ORDERED: Insulin LISPRO* 1 UNITS UNIT SUBCUT ONE (23:00)
[2018-09-11] MEDS: Tiotropium CAPSULE (NF) 1 CAP/18 MCG CAP.INH INH SCH (23:08)
[2018-09-11] MEDS: Enoxaparin(*) 40 MG/0.4 ML SYR SUBCUT SCH (23:18)
[2018-09-12 01:18] LABS: Troponin I 0.11 ng/mL (<0.04)
--- NOTE | 2018-09-12 01:20 | HP ---
CC: Dr. Myrick * HISTORY AND PHYSICAL: DATE OF ADMISSION: PRIMARY CARE PROVIDER: Dr. Myrick. PROVIDER: MICHELLE Mendieta ATTENDING PHYSICIAN WHILE IN THE HOSPITAL: Dr. Corona Grimes * (dictated by MICHELLE Mendieta). CHIEF COMPLAINT: Shortness of breath. HISTORY OF PRESENT ILLNESS: Lani Garland is a 73-year-old white female with a past medical history significant for COPD, on 3 to 3.5 L of oxygen at home; hypertension; hyperlipidemia; depression; diet-controlled diabetes, who presents to emergency department today due to shortness of breath x1 day. The patient today was experiencing shortness of breath at rest. She tried using her nebulizer at home and her shortness of breath at rest did not improve. She then decided to present to the hospital. The patient denies today or the last several days experiencing fever, chills, increased sputum production, nasal congestion. Today, the patient denies chest pain, abdominal pain, nausea, vomiting, neck pain, jaw pain, or shoulder pain. The patient notes that she no longer takes Spiriva because of adverse reaction of urinary retention; however, she has not been taking Spiriva at home for several years and still notes urinary retention. The patient recently saw her primary care provider in the office last month. At that time, she was referred to Dr. Maldonado and it does not appear she has had followup appointment since that time. ED COURSE: The patient arrived to the emergency department via EMS where en route to the hospital, she was given IV Decadron. At the emergency department, she initially had vital signs demonstrating temperature 98.9, pulse rate 113, respiratory rate 38, oxygen saturation 94% on 3 L, blood pressure 197/116. In the emergency department, she was given DuoNeb, 1 dose of levofloxacin, 3 doses of magnesium sulfate as well 1 L of bolus of normal saline. The patient was placed on BiPAP. The patient was later removed off BiPAP and saturating over 95 % on 4 L nasal cannula. PAST MEDICAL HISTORY: 1. COPD, on 3 to 3.5 L at home. 2. Hyperlipidemia. 3. Hypertension. 4. Diet-controlled diabetes mellitus. 5. Depression. 6. Osteopenia. 7. Vitamin D deficiency. 8. History of splenic artery aneurysm. PAST SURGICAL HISTORY: Splenic artery stent. HOME MEDICATIONS: 1. Venlafaxine p.o. daily. 2. Multivitamin 1 tab p.o. daily. 3. Ipratropium nebulized solution 0.5 mg inhaled q.6 hours p.r.n. shortness of breath/wheezing. 4. Boniva 150 mg p.o. monthly. 5. Spiriva Ellipta 1 inhalation p.o. daily. 6. Vitamin D3 1000 units p.o. daily. 7. Lipitor 10 mg p.o. at bedtime. 8. Albuterol sulfate 0.63 units nebulized four times a day p.r.n. shortness of breath/wheezing. 9. Albuterol inhaler 1 to 2 puffs inhaled q.6 hours p.r.n. shortness of breath/ wheezing. ALLERGIES: The patient reports reaction of hives to PENICILLIN. The patient reports reaction of nausea to CLARITHROMYCIN. There is a report in EMR of adverse reaction of urinary retention secondary to SPIRIVA. FAMILY HISTORY: Father at age 91 due to unknown causes, history of [place] at age 58. Mother at age 90 due to deconditioning after a hip fracture. Mom had history of hypertension. SOCIAL HISTORY: The patient is . She lives alone. 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 She has 2 children. Should she need a surrogate medical decision maker, she would like either of her daughters to do so. Their names are Nazanin Rasmussen and Bita Rasmussen. Nazanin's phone number is [phone]. Bita's phone number is [phone]. The patient is a former smoker and quit 7 to 8 years ago. She smoked for approximately 40 years of approximately half pack a day. The patient denies alcohol use or illicit drug use. REVIEW OF SYSTEMS: An 11-point review of systems was completed and all pertinent positives and negatives are above in the HPI. All other systems are negative. PHYSICAL EXAMINATION GENERAL: Thin elderly white female, lying upright in the hospital bed, appearing in mild distress, breathing with pursed lips, and utilizing accessory neck muscles. HEENT: Head: Normocephalic, atraumatic. Eyes: PERRLA. Sclerae anicteric. ENT: Lips appear dry. NECK: Supple. LUNGS: Diminished breath sounds throughout. Expiratory wheezing in the right upper lobe. CARDIO: Regular rate and rhythm with no murmurs, rubs, or gallops. ABDOMEN: Abdomen is soft, nontender, and nondistended without hepatosplenomegaly. EXTREMITIES: Extremities are thin without clubbing, cyanosis, or edema. NEUROLOGIC: The patient is alert and oriented x4. No focal deficits. Able to move all extremities. SKIN: Skin is warm, dry, and intact. There is ecchymosis to left dorsal aspect of left hand consistent with recent ABG in the emergency department. DIAGNOSTIC STUDIES/LAB DATA: EKG demonstrates sinus tachycardia at rate 113 beats per minute. Left bundle branch block present, which is consistent with previous EKG. There are new ST depressions in leads V4 through V6. Chest x-rays: Overinflation consistent with previous EKG. No infiltrate per my read. Prominent pulmonary vasculature. ABG: pH 7.37, PCO2 of 57, PO2 of 92, bicarb 29.6, O2 sat 97.7, base excess 6. White blood cell count 14.9, hemoglobin 14.7, hematocrit 45, platelet count 304. Sodium 135, potassium 4.3, chloride 98, carbon dioxide 30, anion gap 7, BUN 19, creatinine 0.56, glucose 255, lactic acid 0.8, calcium 10.2. Troponin 0.01. ASSESSMENT AND PLAN: Lani Rasmussen is a 73-year-old white female with a past medical history for chronic obstructive pulmonary disease, using 3 to 3.5 L at home; depression; hypertension; diet-controlled diabetes; hyperlipidemia, who presents to the emergency department today complaining of shortness of breath. The patient will be admitted inpatient to the ICU for: 1. Acute on chronic respiratory failure. The patient uses 3 to 3.5 L of oxygen at home. She required BiPAP in the emergency department. The patient is now off BiPAP but still breathing with accessory muscles and breathing with pursued lips. It will be of benefit to her to be in the ICU for close monitoring at least overnight in case additional BiPAP is needed. She will likely need Vapotherm. She is using 4 L right now. The patient received IV Decadron in the ambulance prior to coming to hospital, which likely explains her leukocytosis. To me, her x-ray does not appear to have an infiltrate and I will not start empiric coverage as this is likely the explanation of her leukocytosis. I suspect that her chronic obstructive pulmonary disease was exacerbated today due to the extreme heat and humidity today despite the patient turning up her air conditioning. I will start IV Solu-Medrol starting tomorrow morning and scheduled DuoNebs. I will continue a formulary equivalent of her Breo Ida and start her on Spiriva. The patient already has mild urinary retention where she was able to make a stream at this point. If she has worsened urinary retention to the point where she is not having output, we will discontinue Spiriva and utilize nebulized ipratropium as this appears the patient's uses at home. The patient does technically meet systemic inflammatory response syndrome criteria. There does not appear a source of infection and this is secondary to her shortness of breath related to her chronic obstructive pulmonary disease exacerbation. 2. Abnormal EKG. The patient has ST depression in leads V4 through V6 which appeared new compared to old EKG. She likely has a component of ischemic demand ; however, her troponin is negative. This will be repeated every 3 hours and until downtrending. I will additionally repeat her EKG at the next troponin read. She is asymptomatic at this time. 3. Diabetes. The patient is diet controlled at home. She was hyperglycemic upon arrival. This was likely related to her IV Decadron that she received in the ambulance. She will be monitored on fingersticks and lispro sliding scale has been ordered as well consistent carbohydrate diet. 4. Depression. I will continue the patient's home Effexor. 5. Hypertension. The patient is hypertensive in the emergency department. It does not appear that the patient takes antihypertensive medication at home. I will order p.r.n. hydralazine as needed for systolic blood pressure over 160. 6. Hyperlipidemia. I will continue the patient's home Lipitor. 7. Osteopenia. The patient receives Boniva monthly. I will hold this for now. 8. FEN. No IV fluids needed. Consistent carbohydrate diet. Electrolytes are within normal limits. 9. Code status: The patient is full code. 10. DVT prophylaxis. The patient has a DVT risk score of 3. I will start her on Lovenox 40 subcu daily. 11. Early discharge planning. Given that the patient lives alone and has in the past complained of worsened depression due to her decreased mobility, due to her oxygen use at home, and this new hospitalization, it may be beneficial for the patient to have referral to the [facility] program. TIME SPENT: Approximately 45 minutes was spent on this admission, approximately half this time was spent at bedside. This case has been reviewed by the attending, Dr. Corona Grimes, and he agrees with this plan of care. MICHELLE MENDIETA [id number]/[facility] #: [id number] BLACK
[2018-09-12] MEDS: Albuterol/Ipratropium NEB.SOL* Albuterol 2.5 MG/Ipratropium 0.5 MG 3 ML INH SCH ×4 (01:25→19:42)
[2018-09-12 03:53] LABS: Hematocrit 40 % (35-47); Hemoglobin 13.5 g/dL (12.0-16.0); Mean Corpuscular HGB Conc 34 g/dL (31-36); Mean Corpuscular Hemoglobin 30 pg (27-31); Mean Corpuscular Volume 88 fL (80-97); Mean Platelet Volume 9.8 fL (7.4-10.4); Platelet Count 250 10^3/uL (150-450); Red Cell Distribution Width 14 % (10-15); White Blood Count 7.5 10^3/uL (3.5-10.8)
[2018-09-12 04:09] LABS: Anion Gap 5 mmol/L (2-11); BUN/Creatinine Ratio 26.8 (8-20); Blood Urea Nitrogen 15 mg/dL (6-24); CO2 Carbon Dioxide 31 mmol/L (22-32); Calcium 9.6 mg/dL (8.6-10.3); Chloride 100 mmol/L (101-111); EGFR African American 128.4 (>60); EGFR Non-African American 106.1 (>60); Glucose 177 mg/dL (70-100); Magnesium 2.1 mg/dL (1.9-2.7); Potassium 4.2 mmol/L (3.5-5.0); Sodium 136 mmol/L (135-145)
[2018-09-12 04:13] LABS: Troponin I 0.13 ng/mL (<0.04)
[2018-09-12 04:39] LABS: ABS Lymphocytes 0.6 10^3/ul (1.0-4.8); ABS Monocytes 0.1 10^3/ul (0-0.8); ABS Neutrophils 6.9 10^3/ul (1.5-7.7); Eosinophil % 0.1 %; Lymphocyte % 7.5 %
[2018-09-12 06:59] LABS: Troponin I 0.17 ng/mL (<0.04)
[2018-09-12] MEDS: Tiotropium CAPSULE (NF) 1 CAP/18 MCG CAP.INH INH SCH (08:15)
[2018-09-12] MEDS: Fluticasone/Vilanterol MDI(NF) 100/25 MDI INH SCH (08:15)
[2018-09-12] MEDS: Insulin LISPRO* 1 UNITS UNIT SUBCUT SCH ×3 (08:23→17:26)
[2018-09-12] MEDS: Venlafaxine EXT RELEASE CAP* 75 MG PO SCH (08:25)
[2018-09-12] MEDS: Multivitamins/Minerals TAB PO SCH (08:26)
[2018-09-12] MEDS: methylPREDNISolone SOD 40 MG* 1 ML VIAL IV SCH ×2 (08:26→21:25)
[2018-09-12] MEDS: Cholecalciferol TAB* 1000 UNITS PO SCH (08:26)
[2018-09-12] MEDS: CMCS:Venlafaxine TAB (NF) 25 MG TAB PO SCH (08:39)
[2018-09-12 11:14] LABS: Troponin I 0.14 ng/mL (<0.04)
--- NOTE | 2018-09-12 17:05 | PN ---
Subjective Date of Service: 09/12/18 Interval History: Pt seen this am in ICU.Reports improvement in sob.Titrated off Vapotherm overnight and now on 3.5 l ( on 3.5l at home for copd) Reports feeling sig better Objective Active Medications: Acetaminophen (Tylenol Tab*) 650 mg PO Q4H PRN PRN Reason: FEVER/PAIN Al Hydrox/Mg Hydrox/Simethicone (Maalox Plus*) 30 ml PO Q6H PRN PRN Reason: INDIGESTION Albuterol (Ventolin Hfa Inhaler*) 2 puff INH Q6H PRN PRN Reason: SHORTNESS OF BREATH Albuterol/Ipratropium (Duoneb (Albuterol 2.5 Mg/Ipratropium 0.5 Mg)) 1 neb INH [id number] AWAKE [facility] Last Admin: 09/12/18 12:56 Dose: 1 neb Atorvastatin Calcium (Lipitor*) 10 mg PO BEDTIME [facility] Cholecalciferol (Vitamin D Tab*) 1,000 units PO DAILY [facility] Last Admin: 09/12/18 08:26 Dose: Not Given Device (Tiotropium Inhaler Device*) 1 each INH .USE w/ SPIRIVA CAPS [facility] Dextrose (Dextrose 50% Vial 50 Ml*) 25 ml IV PUSH .FOR FS < 60 - SS PRN PRN Reason: FS < 60 Enoxaparin Sodium (Lovenox(*)) 40 mg SUBCUT Q24H [facility] Last Admin: 09/11/18 23:18 Dose: 40 mg Fluticasone/Vilanterol (Breo Ellipta Mdi 100/25(Nf)) 1 puff INH DAILY [facility] Last Admin: 09/12/18 08:15 Dose: Not Given Hydralazine HCl (Apresoline Iv*) 5 mg IV SLOW PU Q6H PRN PRN Reason: SYSTOLIC BP GREATER THAN: Insulin Human Lispro (Humalog*) 0 units SUBCUT AC [facility]; Protocol Last Admin: 09/12/18 13:44 Dose: 3 units Methylprednisolone Sodium Succinate (Solu-Medrol 40 Mg) 40 mg IV Q12H [facility] Last Admin: 09/12/18 08:26 Dose: 40 mg Multivitamins/Minerals (Theragran/Minerals Tab*) 1 tab PO DAILY [facility] Last Admin: 09/12/18 08:26 Dose: 1 tab Ondansetron HCl (Zofran Inj*) 4 mg IV Q4H PRN PRN Reason: NAUSEA/VOMITING Senna (Senokot Tab*) 1 tab PO BID PRN PRN Reason: CONSTIPATION Tiotropium [place] (Spiriva Cap.Inh*) 1 cap INH DAILY [facility] Last Admin: 09/12/18 08:15 Dose: Not Given Venlafaxine HCl (Effexor Xr Cap*) 150 mg PO DAILY [facility]; Protocol Last Admin: 09/12/18 08:25 Dose: 150 mg Venlafaxine HCl (Effexor Tab (Nf)) 25 mg PO DAILY [facility] Last Admin: 09/12/18 08:39 Dose: 25 mg Vital Signs - 8 hr 09/12/18 09/12/18 09/12/18 09:01 10:00 10:01 Temperature Pulse Rate 98 97 Respiratory 21 23 25 Rate Blood Pressure 159/80 (mmHg) O2 Sat by Pulse 95 97 Oximetry 09/12/18 09/12/18 09/12/18 11:48 12:10 12:30 Temperature 98.1 F 98.2 F Pulse Rate 103 Respiratory 22 22 Rate Blood Pressure 158/83 (mmHg) O2 Sat by Pulse 99 Oximetry 09/12/18 09/12/18 09/12/18 12:59 14:54 14:55 Temperature 98.5 F Pulse Rate 102 99 Respiratory 20 16 Rate Blood Pressure 120/55 (mmHg) O2 Sat by Pulse 99 100 Oximetry Oxygen Devices in Use Now: Nasal Cannula Eyes: No Scleral Icterus Ears/Nose/Mouth/Throat: NL Teeth, Lips, Gums Neck: NL Appearance and Movements; NL JVP, Trachea Midline Respiratory: Symmetrical Chest Expansion and Respiratory Effort, Clear to Auscultation Cardiovascular: NL Sounds; No Murmurs; No JVD Abdominal: NL Sounds; No Tenderness; No Distention Extremities: No Edema Neurological: Alert and Oriented x 3 Result Diagrams: 09/11/18 18:36 09/11/18 18:36 Microbiology and Other Data: Microbiology 09/11/18 22:09 Nasal Screen MRSA (PCR) - Final Nasal Mrsa Not Detected Assess/Plan/Problems-Billing Assessment: - Patient Problems (1) COPD exacerbation Current Visit: Yes Status: Acute Code(s): J44.1 - CHRONIC OBSTRUCTIVE PULMONARY DISEASE W (ACUTE) EXACERBATION SNOMED Code(s): 090259852 Comment: Off Vapotherm Refused BIPAP overnight in ICU Back on home oxygen 3.5l chronically Continue Solumedrol (2) Hypertension Current Visit: Yes Status: Acute Code(s): I10 - ESSENTIAL (PRIMARY) HYPERTENSION SNOMED Code(s): 55763972 Comment: BP in the 190s in the ER and resp distress Ashley on BP meds at home Improved and BP currently in the 120s (3) Troponin I above reference range Current Visit: Yes Status: Acute Code(s): R74.8 - ABNORMAL LEVELS OF OTHER SERUM ENZYMES SNOMED Code(s): 709482028 Comment: Min elevation likely from demand ischemia Reports heart disease in the family Consider Stress test when mediclaly optimized Monitor on Telemetry (4) Diabetes type 2, controlled Current Visit: No Status: Acute Code(s): E11.9 - TYPE 2 DIABETES MELLITUS WITHOUT COMPLICATIONS SNOMED Code(s): 55275257 Comment: Insulin Status and Disposition: Transfer out of ICU to telemetry
[2018-09-12] MEDS ORDERED: Atorvastatin* 10 MG TAB PO SCH (21:00)
[2018-09-12] MEDS ORDERED: traZODone TAB* 50 MG TAB PO PRN (22:41)
[2018-09-12] MEDS ORDERED: Saline NASAL SPRAY 0.65%* BTL BOTH NARES PRN ×2 (22:49→22:56)
[2018-09-12] MEDS: Enoxaparin(*) 40 MG/0.4 ML SYR SUBCUT SCH (23:04)
[2018-09-13] MEDS: Albuterol/Ipratropium NEB.SOL* Albuterol 2.5 MG/Ipratropium 0.5 MG 3 ML INH SCH ×3 (01:06→12:45)
[2018-09-13] MEDS: Tiotropium CAPSULE (NF) 1 CAP/18 MCG CAP.INH INH SCH (07:40)
[2018-09-13] MEDS: Fluticasone/Vilanterol MDI(NF) 100/25 MDI INH SCH (07:40)
[2018-09-13] MEDS: Cholecalciferol TAB* 1000 UNITS PO SCH (08:10)
[2018-09-13] MEDS: Insulin LISPRO* 1 UNITS UNIT SUBCUT SCH ×3 (08:10→17:24)
[2018-09-13] MEDS: methylPREDNISolone SOD 40 MG* 1 ML VIAL IV SCH (08:47)
[2018-09-13] MEDS: Multivitamins/Minerals TAB PO SCH (08:47)
[2018-09-13] MEDS: CMCS:Venlafaxine TAB (NF) 25 MG TAB PO SCH (08:47)
[2018-09-13] MEDS: Venlafaxine EXT RELEASE CAP* 75 MG PO SCH (08:47)
[2018-09-13] MEDS ORDERED: Perflutren Lipid Microsphere* 3 ML VIAL ONE (10:19)
[2018-09-13] MEDS ORDERED: Albuterol 2.5 MG/3 ML NEB.SOL* (0.083%) INH PRN (12:40)
--- NOTE | 2018-09-13 12:46 | PN ---
Subjective Date of Service: 09/13/18 Interval History: Patient's breathing is near baseline. She can walk to bathroom. She is on 3.5 l/ min O2 at home, same rate here. She needs help at home with lunchtime meals and light housework. She feels she is having difficulty urinating. Family History: Unchanged from Admission Social History: Unchanged from Admission Past Medical History: Unchanged from Admission Objective Active Medications: Acetaminophen (Tylenol Tab*) 650 mg PO Q4H PRN PRN Reason: FEVER/PAIN Al Hydrox/Mg Hydrox/Simethicone (Maalox Plus*) 30 ml PO Q6H PRN PRN Reason: INDIGESTION Albuterol (Ventolin Hfa Inhaler*) 2 puff INH Q6H PRN PRN Reason: SHORTNESS OF BREATH Atorvastatin Calcium (Lipitor*) 10 mg PO BEDTIME [facility] Last Admin: 09/12/18 21:25 Dose: 10 mg Cholecalciferol (Vitamin D Tab*) 1,000 units PO DAILY [facility] Last Admin: 09/13/18 08:10 Dose: Not Given Device (Tiotropium Inhaler Device*) 1 each INH .USE w/ SPIRIVA CAPS [facility] Dextrose (Dextrose 50% Vial 50 Ml*) 25 ml IV PUSH .FOR FS < 60 - SS PRN PRN Reason: FS < 60 Enoxaparin Sodium (Lovenox(*)) 40 mg SUBCUT Q24H [facility] Last Admin: 09/12/18 23:04 Dose: 40 mg Fluticasone/Vilanterol (Breo Ellipta Mdi 100/25(Nf)) 1 puff INH DAILY [facility] Last Admin: 09/13/18 07:40 Dose: Not Given Hydralazine HCl (Apresoline Iv*) 5 mg IV SLOW PU Q6H PRN PRN Reason: SYSTOLIC BP GREATER THAN: Insulin Human Lispro (Humalog*) 0 units SUBCUT AC [facility]; Protocol Last Admin: 09/13/18 12:39 Dose: 1 units Methylprednisolone Sodium Succinate (Solu-Medrol 40 Mg) 40 mg IV Q12H [facility] Last Admin: 09/13/18 08:47 Dose: 40 mg Multivitamins/Minerals (Theragran/Minerals Tab*) 1 tab PO DAILY [facility] Last Admin: 09/13/18 08:47 Dose: 1 tab Ondansetron HCl (Zofran Inj*) 4 mg IV Q4H PRN PRN Reason: NAUSEA/VOMITING Senna (Senokot Tab*) 1 tab PO BID PRN PRN Reason: CONSTIPATION Last Admin: 09/13/18 08:47 Dose: 1 tab Sodium Chloride (Sodium Chloride 0.65% Nasal [place]*) 1 spray BOTH NARES Q4H PRN PRN Reason: DRY NOSE Last Admin: 09/12/18 23:04 Dose: 1 spray Tiotropium [place] (Spiriva Cap.Inh*) 1 cap INH DAILY [facility] Last Admin: 09/13/18 07:40 Dose: Not Given Trazodone HCl (Desyrel Tab*) 50 mg PO BEDTIME PRN PRN Reason: INSOMNIA Last Admin: 09/12/18 23:04 Dose: 50 mg Venlafaxine HCl (Effexor Xr Cap*) 150 mg PO DAILY [facility]; Protocol Last Admin: 09/13/18 08:47 Dose: 150 mg Venlafaxine HCl (Effexor Tab (Nf)) 25 mg PO DAILY [facility] Last Admin: 09/13/18 08:47 Dose: 25 mg Vital Signs - 8 hr 09/13/18 09/13/18 09/13/18 07:44 08:05 08:25 Temperature 36.4 C Pulse Rate 82 93 Respiratory 16 16 16 Rate Blood Pressure 132/58 (mmHg) O2 Sat by Pulse 98 98 Oximetry 09/13/18 11:28 Temperature 36.6 C Pulse Rate 99 Respiratory 16 Rate Blood Pressure 122/72 (mmHg) O2 Sat by Pulse 97 Oximetry Oxygen Devices in Use Now: Nasal Cannula Appearance: alert, no distress Eyes: No Scleral Icterus Ears/Nose/Mouth/Throat: NL Teeth, Lips, Gums, Clear Oropharnyx Neck: NL Appearance and Movements; NL JVP Respiratory: Symmetrical Chest Expansion and Respiratory Effort, Clear to Auscultation Cardiovascular: NL Sounds; No Murmurs; No JVD, RRR Lymphatic: No Cervical Adenopathy Extremities: No Edema Neurological: Alert and Oriented x 3 Lines/Tubes/Other Access: Clean, Dry and Intact Peripheral IV Nutrition: Taking PO's Result Diagrams: 09/11/18 18:36 09/11/18 18:36 Additional Lab and Data: Laboratory Tests 09/12/18 09/12/18 09/13/18 17:19 21:24 08:06 POC Glucose (mg/dL) 139 H 105 H 137 H 09/13/18 11:59 POC Glucose (mg/dL) 151 H Assess/Plan/Problems-Billing Assessment: 73 year old woman with COPD exacerbation - Patient Problems (1) COPD exacerbation Current Visit: Yes Status: Acute Priority: High Code(s): J44.1 - CHRONIC OBSTRUCTIVE PULMONARY DISEASE W (ACUTE) EXACERBATION SNOMED Code(s): 201447755 Comment: -Improving rapidly -Back on home oxygen 3.5l chronically -switch Solumedrol to oral prednisone (2) Diabetes type 2, controlled Current Visit: No Status: Acute Priority: Medium Code(s): E11.9 - TYPE 2 DIABETES MELLITUS WITHOUT COMPLICATIONS SNOMED Code(s): 89587976 Comment: -Doing well generally diet-controlled. -Sliding scale Insulin (3) Urinary retention Current Visit: Yes Status: Acute Priority: Medium Code(s): R33.9 - RETENTION OF URINE, UNSPECIFIED SNOMED Code(s): 653040235 Comment: -May be side effect of Spiriva plus ipratropium, this was stopped -Checking bladder scan Status and Disposition: Can be discharged today or tomorrow.
[2018-09-13 16:14] VITALS: BP 131/68
--- NOTE | 2018-09-13 16:41 | ECHO ---
*[facility]* [place] [address] Fax #: [phone] Transthoracic Echocardiogram Patient: Lani Rasmussen : 1945 Study Date: 09/13/2018 Age: 73 Gender: F HR: 98 bpm Height: 66 in /167.6 cm BSA: 1.6 m^2 Weight: 118.8 lb /54 kg BMI: 19.2 kg/m^2 *Doctor Of Optometry: Bettye Redding [facility] *Referring Physician: * O'Letty Acuna *Reading Physician: * Latrell Delaney MD Indications: Abnormal EKG. History: Chronic obstructive pulmonary disease. Risk factors: Hypertension. Diabetes mellitus. Dyslipidemia. Conclusions Summary: 1. Left ventricle: Systolic function is normal. The estimated ejection fraction is 60-65%. Wall motion is normal; there are no regional wall motion abnormalities. 2. Right ventricle: Systolic function is normal. 3. Mitral valve: There is no significant regurgitation. 4. Aortic valve: There is no evidence of stenosis. There is no significant regurgitation. 5. Tricuspid valve: There is mild regurgitation. 6. Pulmonary arteries: Systolic pressure is within the normal range. 7. Compared to study of 04/21/13, there is little change. Study data: Transthoracic echocardiogram. Procedure: Transthoracic echocardiography was performed. Image quality was adequate. Intravenous Definity , 2.5 mlswas administered. Complete 2D, spectral Doppler, and color flow Doppler. Location: Bedside. Patient status: Inpatient. Patient room number: 436. Rhythm: Normal sinus rhythm. Findings Left ventricle: The cavity size is mildly reduced. Wall thickness is mildly increased. Systolic function is normal. The estimated ejection fraction is 60-65%. Wall motion is normal; there are no regional wall motion abnormalities. There is no consistent Doppler evidence of clinically significant diastolic dysfunction. Right ventricle: The cavity size is normal. Wall thickness is mildly increased. Systolic function is normal. Left atrium: The atrium is normal in size. Right atrium: The atrium is normal in size. Mitral valve: The leaflets are normal thickness. There is no evidence of stenosis. There is no significant regurgitation. Aortic valve: The annulus is mildly calcified. The valve is trileaflet. The leaflets are normal thickness. There is no evidence of stenosis. There is no significant regurgitation. Tricuspid valve: The leaflets are normal thickness. There is no evidence of stenosis. There is mild regurgitation. Pulmonic valve: Not well visualized. There is no significant regurgitation. Aorta: Aortic root: The aortic root is appears normal. Ascending aorta: The ascending aorta is appears normal. Aortic arch: The aortic arch is poorly visualized. Pericardium: There is no significant pericardial effusion. Pulmonary arteries: Not well visualized. Systolic pressure is within the normal range. Systemic veins: Inferior vena cava: The vessel is normal in size. The respirophasic diameter changes are in the normal range (>= 50%). Measurements Left ventricle Value Ref Aortic valve Value Ref TOMER, LAX (L) 3.0 cm 3.8 - 5.2 Rodney diam, ED 1.9 cm ----- ESD, LAX 2.2 cm 2.2 - 3.5 Peak v, S 1.12 m/sec ----- FS, LAX 28 % 27 - 45 Peak grad, S 5.0 mm Hg ----- PW, ED, LAX (H) 1.0 cm 0.6 - 0.9 EF 55 % 54 - 74 Mitral valve Value Ref E', lat rodney, TDI (L) 8.2 cm/sec >=10.0 Peak E 0.63 m/sec --- -- E/e', lat rodney, 8 Peak A 0.9 m/sec ----- TDI Decel time 95 ms ----- E', med rodney, TDI (L) 5.0 cm/sec >=7.0 Peak E/A ratio 0.7 --- -- E/e', med rodney, 13 TDI Pulmonic valve Value Ref E', avg, TDI 6.6 cm/sec Peak v, S 0.61 m/sec ----- E/e', avg, TDI 10 <=14 Peak grad, S 1.0 mm Hg --- -- LVOT Value Ref Tricuspid valve Value Ref Peak ameena, S 1.15 m/sec TR peak v 2.1 m/sec <=2.8 Peak grad, S 5 mm Hg Peak RV-RA grad, S 18 mm Hg ----- Ventricular septum Value Ref Aortic root Value Ref IVS, ED (H) 1.2 cm 0.6 - 0.9 Root diam 2.6 cm <3.8 Right ventricle Value Ref Ascending aorta Value Ref TOMER, LAX 2.7 cm AAo AP diam, S 3.0 cm ----- Pressure, S 26 mm Hg Pulmonary artery Value Ref Left atrium Value Ref Pressure, S 25.0 mm Hg ----- AP dim, ES (L) 2.50 cm 2.70 - 3.80 Inferior vena cava Value Ref ML dim, A4C 3.7 cm Diam 1.5 cm ----- SI dim, A4C 3.5 cm Vol/bsa, ES, A/L 24 ml/m^2 16 - 34 Right atrium Value Ref SI dim, ES 3.6 cm 3.4 - 5.3 ML dim, ES, A4C 3.5 cm 2.6 - 4.4 Estimated RAP 8 mm Hg Legend: (L) and (H) alhaji values outside specified reference range. Prepared and electronically signed by Latrell Delaney MD 09/13/2018 16:41
[2018-09-14] MEDS ORDERED: predniSONE TAB* 50 MG PO SCH (09:00)
--- NOTE | 2018-09-14 19:29 | DS ---
CC: Dr. Myrick * DISCHARGE SUMMARY: DATE OF ADMISSION: 09/11/18 DATE OF DISCHARGE: 09/13/18 PRIMARY DIAGNOSIS: Chronic obstructive pulmonary disease exacerbation. SECONDARY DIAGNOSES: 1. Troponin elevation consistent with demand ischemia. 2. Hyperlipidemia. 3. Hypertension. 4. Diet-controlled type 2 diabetes. 5. Depression. 6. Osteoporosis. MEDICATIONS ON DISCHARGE: 1. Albuterol inhaler 1 to 2 puffs inhaled 4 times daily p.r.n. 2. Albuterol nebulizer as alternative to the inhaler 4 times daily p.r.n. 3. Atorvastatin 10 mg p.o. q.h.s. 4. Vitamin D3 1000 units p.o. daily. 5. Fluticasone/vilanterol 100/25 one inhalation daily. 6. Boniva 150 mg p.o. q. month. 7. Ipratropium nebulizer q.6 hours. 8. Multivitamin 1 tab p.o. daily. 9. Venlafaxine 175 mg p.o. daily. 10. Acetaminophen 650 mg p.o. q.4 hours p.r.n. fever or pain. 11. Maalox as needed. 12. Prednisone 50 mg p.o. daily for 4 days and then taper by 10 mg every 2 days until stopped. 13. Saline nasal spray as needed. 14. Senna 1 tab p.o. b.i.d. p.r.n. constipation. 15. Trazodone 50 mg p.o. q.h.s. HOSPITAL COURSE: The patient presented to the emergency department with weakness and dyspnea and exacerbation of COPD with chronic hypercarbic respiratory failure. Her pH was 7.37 on admission, pCO2 of 57, pO2 of 92, consistent with a chronically compensated respiratory acidosis. The patient had initial chest x-ray that showed hyperinflation, no infiltrates. EKG showed sinus tachycardia and left posterior fascicular block. She was admitted to the intensive care unit and treated with Vapotherm overnight and weaned back down to her normal oxygen dose of 3.5 L nasal cannula. She has not required intubation or BiPAP. Because of absence of pneumonia or bronchitis symptoms, she was not started on antibiotics. She was treated with intravenous Solu- Medrol and converted to oral steroids on the day of discharge. Her troponin was elevated on admission at 0.9 and anatoliy to 0.17 at a max and 0.14 , trending down. The patient had an echocardiogram, which showed no wall motion abnormalities. Repeat EKGs continue to show sinus rhythm with nonspecific intraventricular conduction delay. Because she had no cardiac symptoms and mildly elevated troponin, this is thought to be demand ischemia. An outpatient stress test would be reasonable as she does not have one at least since 2013, she has multiple risk factors. For her diabetes, she had blood sugar fluctuating between 105 and 256 during the hospital stay. She had p.r.n. sliding scale insulin and probably can remain diet- controlled as an outpatient. DISPOSITION: To home. DIET: Should be diabetic and low-fat. CONDITION: Fair. STATUS: Inpatient. FOLLOWUP: She should be seen by Dr. Myrick within 1 week for followup. TIME SPENT: I spent more than 35 minutes with the patient on the day of discharge, interfacing with the family and patient, completing physical exam, and completing discharge paperwork. [id number] #: [id number]
== END 2018-09-13 19:45 | disposition home or self-care (01) | DRG 190 ==
LOC: ED 18:06 → ICU 21:12 → MEDTELE 09-12 11:07
PROVIDERS: ADMIT Internal Medicine; ATTEND Internal Medicine
PROC: 5A09357 Assistance with Respiratory Ventilation, Less than 24 Consecutive Hours, Continuous Positive Airway Pressure (ICD-10-PCS; principal; 2018-09-11)
DX: J44.1 Chronic obstructive pulmonary disease with (acute) exacerbation (principal); J96.22 Acute and chronic respiratory failure with hypercapnia; I24.8 Other forms of acute ischemic heart disease; E87.2 Acidosis; J96.11 Chronic respiratory failure with hypoxia; E78.5 Hyperlipidemia, unspecified; I10 Essential (primary) hypertension; E11.9 Type 2 diabetes mellitus without complications; F32.9 Major depressive disorder, single episode, unspecified; M81.0 Age-related osteoporosis without current pathological fracture; R00.0 Tachycardia, unspecified; R94.31 Abnormal electrocardiogram [ECG] [EKG]; E78.00 Pure hypercholesterolemia, unspecified; M19.90 Unspecified osteoarthritis, unspecified site; R33.9 Retention of urine, unspecified; I44.5 Left posterior fascicular block; M85.80 Other specified disorders of bone density and structure, unspecified site; E55.9 Vitamin D deficiency, unspecified; Z95.828 Presence of other vascular implants and grafts; Z88.0 Allergy status to penicillin; Z99.81 Dependence on supplemental oxygen; Z88.1 Allergy status to other antibiotic agents; Z88.8 Allergy status to other drugs, medicaments and biological substances; Z82.49 Family history of ischemic heart disease and other diseases of the circulatory system; Z87.891 Personal history of nicotine dependence; Z85.41 Personal history of malignant neoplasm of cervix uteri; Z83.6 Family history of other diseases of the respiratory system
CPT/HCPCS: 36415; 71045; 80048; 80053; 82803; 83605; 83735; 83880; 84484; 85025; 85610; 85730; 87040; 87641; 93005; 93306; 94640; 94660; 99285; A9270-GY; C8929; J1650; J1956; J2920; J3475